=== PATIENT | male | born 1985 | race Caucasian/White ===

== ENCOUNTER → 2016-08-24 | Outpatient (CLI) | payer OTHER | LOC: CIMAGING 07:31 | PROVIDERS: ATTEND Physician Assistant | DX: R10.12 Left upper quadrant pain (principal); R19.7 Diarrhea, unspecified | CPT/HCPCS: 76700-PO ==

== ENCOUNTER → 2016-08-31 | Outpatient (CLI) | payer OTHER | LOC: FIMAGING 13:44 | PROVIDERS: ATTEND Nurse Practitioner | DX: M76.52 Patellar tendinitis, left knee (principal) ==